=== PATIENT | female | born 1995 | race Caucasian/White ===

== ENCOUNTER 2022-12-18 07:42 | Inpatient (IN) ==
--- NOTE | 2022-12-18 08:12 | History & Physical Report ---
Date of Service December 18, 2022 Assessment & Plan (1) Elective induction of labor planned: Plan: 27 y/o female here for IOL. GBS neg, RI, Rh pos. Anticipate vaginal delivery. Epidural if/when desired. Pitocin when indicated. Admission and Anticipated Discharge Date Admission Date: December 18, 2022 History of Present Illness Primary Care Provider: NO PCP 27 y/o female here for IOL after kyle bulb insertion last evening. A pos, RI, GBS neg. +FM. No CTX. Small vaginal bleeding. No LOF. PMHx: no HTN or asthma, no personal or family history of clotting disorders Ob Hx Physical Education Teacher Hx No prev STDs Last pap 11/22/19: WNL Allergies Allergy/AdvReac Type Severity Reaction Status Date / Time amoxicillin Allergy Rash all Verified 12/17/22 19:26 over body animal dander Allergy Unknown Verified 12/17/22 19:26 house dust Allergy Unknown Verified 12/17/22 19:26 Penicillins Allergy hives Verified 12/17/22 19:26 Home Medications Medication Instructions Recorded Confirmed Type Saccharomyces boulardii [Daily 1 tab PO DAILY 04/29/22 12/17/22 History Probiotic (S. boulardii)] ascorbic acid (vitamin C) 1 tab PO DAILY 04/29/22 12/17/22 History calcium [calcium citrate] 1 tab PO DAILY 04/29/22 12/17/22 History cholecalciferol (vitamin D3) 1 tab PO DAILY 04/29/22 12/17/22 History prenat.vits,janeen,mei-mzmh-fffpk 1 tab PO DAILY 04/29/22 12/17/22 History zinc sulfate PO 04/29/22 12/17/22 History ondansetron HCl 4 mg tablet 4 mg PO Q8H PRN nausea and 10/07/22 12/17/22 Rx vomiting #30 tabs Patient History Medical History (Updated 12/18/22 @ 08:11 by Gardenia Fuentes MD) Depression with anxiety History of dysmenorrhea Surgical History S/P wisdom tooth extraction Family History (Updated 11/22/19 @ 08:48 by Gemma Robins) Family/Other Breast cancer paternal cousin x2 Aunt Breast cancer maternal aunt Denies family history of Ovarian cancer Colorectal cancer Uterine cancer Social History Smoking Status: Never smoker Second Hand Exposure: No; Do You Dip or Chew Tobacco: No; Tobacco Cessation Education Requested by Patient: No Hx Alcohol Use: No (occasional) Hx Substance Use: No Preferred Language: Portuguese Communication Ability: Effective Cost Recovery Technician Required: No Beliefs That Will Affect Care: None marital status: marital status details: Kike (28) [phone] Current Living Situation: Spouse Current Living Situation Comment: lives with spouse, 2 dogs, 3 cats, spouse to change litter. current occupational status: employed current occupation: Hair salon Other Information That Helps Us Care for You: No Feels Safe at Home: Yes Safety Concerns: Feels Safe At This Time Physical Exam Physical Exam: Gen: well appearing gravid female in NAD HEENT: AT NC Resp: CTAB no increased work of breathing CV: RRR no m/r/g, clinically well perfused, no calf tenderness : 3/70/-2 posterior, estimated weight 7-8 lbs Psych: appropriate mood and affect Neuro: alert and oriented FHT: CAT I, moderate variability, no decls, +acels Results & Data ([facility]) Vital Signs (Past 12 Hours) Vital Signs Pulse BP 12/18/22 07:51 90 115/79 Supervising Physician Co-Signing Physician Notes Resident Physician Supervision Note: I interviewed and examined the patient. Discussed with Dr. Fuentes and agree with findings and plan as documented in the note. Any exceptions or clarifications are listed here: Will begin pitocin induction per protocol. Documented By: Annmarie Stallings MD, FACOG Resident Activity Tracking Resident Involvement: Resident Care Provided Care Provided: OB Delivery
[2022-12-18] MEDS ORDERED: LIDOCAINE 1% LOCAL 20 ML VIAL INFIL PRN (08:16)
[2022-12-18] MEDS ORDERED: OXYTOCIN 30 UNITS/500 ML BAG IV PRN ×2 (08:16→09:11)
[2022-12-18 08:45] LABS: Hematocrit (blood only) 37.6 % (37.0-47.0); Hemoglobin 12.9 g/dl (12.0-16.0); Mean Corpuscular Hemoglobin 32.8 pg (25.0-34.0); Mean Corpuscular Hgb Conc 34.3 g/dL (32.0-36.0); Mean Corpuscular Volume 95.7 fL (80.0-100.0); Mean Platelet Volume 11.9 fL (9.4-12.4); Platelet Count 172 K/uL (130-400); RDW Coefficient of Variation 12.8 % (11.5-14.5); RDW Standard Deviation 45.1 fL (36.4-46.3); Red Blood Count 3.93 M/uL (4.20-5.40); White Blood Count 14.55 K/ul (4.8-10.8)
[2022-12-18] MEDS: LACTATED RINGER'S 1,000 ML IV PRN ×4 (09:05→21:15)
[2022-12-18] MEDS ORDERED: ePHEDrine sulfate 50 MG/ML AMP ONE (14:59)
[2022-12-18] MEDS ORDERED: LIDOCAINE 2%/EPINEPHRINE 1:200,000 20 ML SDV ONE (14:59)
[2022-12-18] MEDS ORDERED: fentaNYL citrate 100 MCG/2 ML VIAL ONE ×2 (14:59→21:06)
[2022-12-18] MEDS ORDERED: BUPIVACAINE 0.25% 30 ML VIAL ONE (14:59)
[2022-12-18] MEDS ORDERED: SODIUM CHLORIDE 0.9% INJ 10 ML VIAL ONE (14:59)
[2022-12-18] MEDS ORDERED: fentaNYL 2MCG/ML ROPIVACAINE 1.25MG/ML 100 ML BAG EPI ONE (15:00)
--- NOTE | 2022-12-18 15:41 | Anesthesiology Consultation ---
Date of Service December 18, 2022 Assessment & Plan Chart Review Chart Review: Acceptable Risk for Labor Epidural Consults Requested none History Height/Weight Height: 5 ft 6 in Weight: 76 kg Allergies Allergy/AdvReac Type Severity Reaction Status Date / Time amoxicillin Allergy Rash all Verified 12/17/22 19:26 over body animal dander Allergy Unknown Verified 12/17/22 19:26 house dust Allergy Unknown Verified 12/17/22 19:26 Penicillins Allergy hives Verified 12/17/22 19:26 Medications Home Medications Medication Instructions Recorded Confirmed Last Taken Saccharomyces boulardii [Daily 1 tab PO DAILY 04/29/22 12/17/22 Unknown Probiotic (S. boulardii)] ascorbic acid (vitamin C) 1 tab PO DAILY 04/29/22 12/17/22 Unknown calcium [calcium citrate] 1 tab PO DAILY 04/29/22 12/17/22 Unknown cholecalciferol (vitamin D3) 1 tab PO DAILY 04/29/22 12/17/22 Unknown prenat.vits,janeen,pjo-xjqc-eyicx 1 tab PO DAILY 04/29/22 12/17/22 12/17/22 zinc sulfate PO 04/29/22 12/17/22 Unknown ondansetron HCl 4 mg tablet 4 mg PO Q8H PRN nausea and 10/07/22 12/17/22 Unknown vomiting #30 tabs Active Medications Generic Name Dose Route Start Last Admin Trade Name Freq PRN Reason Stop Dose Admin Lactated Ringer's 1,000 mls @ 125 mls/hr 12/18/22 08:16 12/18/22 15:13 Lr IV 12/20/22 08:15 999 mls/hr .Q8H PRN Administration L&D Protocol Protocol Oxytocin 30 units in 500 mls @ 20 mls/hr 12/18/22 09:11 12/18/22 14:15 Pitocin IV 12/20/22 09:10 1.2 units/hr .Q24H PRN 20 mls/hr Labor Induction/Augmentation Titration Protocol 1.2 UNITS/HR Past Medical History Medical History (Updated 12/18/22 @ 08:11 by Gardenia Fuentes MD) Depression with anxiety History of dysmenorrhea Past Family History Family History (Updated 11/22/19 @ 08:48 by Gemma Robins) Family/Other Breast cancer paternal cousin x2 Aunt Breast cancer maternal aunt Denies family history of Ovarian cancer Colorectal cancer Uterine cancer Past Surgical History Surgical History S/P wisdom tooth extraction Social History Smoking Status: Never smoker Do You Dip or Chew Tobacco: No Hx Alcohol Use: No (occasional) Hx Substance Use: No Physical Exam Vital Signs Last Vital Signs Temp 36.8 C 12/18/22 08:04 Pulse 100 H 12/18/22 15:37 Resp 16 12/18/22 08:04 BP 122/71 12/18/22 15:37 Pulse Ox 99 12/18/22 15:37 Testing Laboratory Results 12/18/22 08:24
[2022-12-18] MEDS ORDERED: NALBUPHINE HCL INJ 10 MG/ML AMP IV PRN (15:42)
[2022-12-18] MEDS ORDERED: diphenhydrAMINE 50 MG/ML VIAL IV PRN (15:42)
[2022-12-18] MEDS ORDERED: NALOXONE HCL 0.4 MG/1 ML VIAL/CARP IV PRN (15:42)
[2022-12-18] MEDS ORDERED: NALOXONE HCL 1 MG in SODIUM CHLORIDE 0.9% 1000ML 1,000 ML IV PRN (15:42)
[2022-12-18] MEDS ORDERED: CALCIUM CARBONATE 500 MG CHEWABLE TAB PO PRN (16:50)
[2022-12-18] MEDS ORDERED: FAMOTIDINE 20 MG TAB PO PRN (18:38)
[2022-12-18] MEDS ORDERED: METOCLOPRAMIDE HCL INJ 5 MG/ML 2 ML VIAL IV STA (20:11)
[2022-12-18] MEDS ORDERED: FAMOTIDINE 20 MG in SYRINGE 3 ML IV ONE (20:13)
[2022-12-18] MEDS ORDERED: CITRIC ACID/SODIUM CITRATE 15 ML UDC PO PRN (20:17)
[2022-12-18] MEDS ORDERED: NURSING L&D Epidural Breakthrough Pain Update ONE (20:47)
[2022-12-18] MEDS: fentaNYL 2MCG/ML ROPIVACAINE 1.25MG/ML 100 ML BAG EPI PRN (20:57)
[2022-12-18] MEDS: ePHEDrine sulfate 50 MG/ML AMP IV PRN ×2 (21:13→21:32)
[2022-12-19] MEDS: fentaNYL 2MCG/ML ROPIVACAINE 1.25MG/ML 100 ML BAG EPI PRN (00:52)
[2022-12-19] MEDS ORDERED: HYDROCORTISONE ACETATE 25 MG SUPP PR PRN (01:39)
[2022-12-19] MEDS ORDERED: OXYTOCIN 30 UNITS/500 ML BAG IV PRN (01:39)
[2022-12-19] MEDS ORDERED: DIPHTHERIA/TETANUS/PERTUSSIS 0.5mL SYR/VIAL (Age 7+yrs) IM ONE (01:39)
[2022-12-19] MEDS ORDERED: BENZOCAINE 20% AER SPR 82.5 GM CAN EXT PRN (01:39)
[2022-12-19] MEDS ORDERED: ACETAMINOPHEN 325 MG TAB PO PRN (01:39)
[2022-12-19] MEDS ORDERED: oxyCODONE/ACETAMINOPHEN 5mg/325mg TAB PO PRN (01:39)
--- NOTE | 2022-12-19 01:46 | Delivery Summary ---
Vaginal Delivery Summary Date of Service December 19, 2022 Vaginal Delivery Summary and 1st Degree LAC Patient is a 27-year-old 1 P0 female EDC of 12/16/2022 who presented for induction of labor because of postterm she received effective cervical ripening with a balloon. Her contractions augmented with Pitocin. She received effective epidural analgesia and membranes were ruptured for clear fluid. She progressed to full dilation and pushed effectively over intact perineum for delivery of a viable male infant. After the head was delivered the rest the infant delivered easily without maternal effort. He was placed on her abdomen for further attention and drying. The infant was vigorous and moving all 4 limbs. After 1 minute the cord was clamped and cut. Cord blood was obtained. The placenta was then expressed intact with a three-vessel cord. A first-degree vaginal laceration was repaired with 3-0 chromic in the usual fashion. A periclitoral abrasion was not bleeding and therefore not repaired. bleeding was controlled with dilute Pitocin and fundal massage. Estimated blood loss was 300 cc. Mother and infant were doing well after delivery. [facility] Vaginal Delivery Charge Delivery Type Details: and 1st Degree LAC
[2022-12-19] MEDS: IBUPROFEN 600 MG TAB PO PRN ×4 (03:36→21:01)
[2022-12-19] MEDS: PRENATAL VITAMIN 1 TAB PO SCH (08:42)
[2022-12-19] MEDS: DOCUSATE SODIUM 100 MG CAP PO SCH ×2 (08:42→21:01)
--- NOTE | 2022-12-19 09:58 | Anesthesia Procedure Note ---
Date of Service December 19, 2022 Anesthesia Post Epidural Note Vital Signs Vital Signs: Temp Pulse Resp BP Pulse Ox O2 Del Method 97.9 F 90 16 121/80 98 Room Air 12/19/22 08:58 12/19/22 08:58 12/19/22 08:58 12/19/22 08:58 12/19/22 08:58 12/19/22 08:58 Pain Intensity Lower Abdomen: Pain Intensity: 2 Notes Mental Status: alert / awake / arousable and participated in evaluation Nausea / Vomiting: adequately controlled Pain: adequately controlled Airway Patency, RR, SpO2: stable & adequate BP & HR: stable & adequate Hydration State: stable & adequate Neuraxial Anesthesia: was administered and sensory block is resolving Anesthetic Complications: no major complications apparent and Pt Satisfied with anesthetic care Epidural: Removed without complications and With tip intact
[2022-12-19] MEDS ORDERED: ONDANSETRON INJ 2 MG/ML 2 ML VIAL IV PRN (18:58)
--- NOTE | 2022-12-20 00:04 | Obstetrical Progress Note ---
Date of Service December 20, 2022 Assessment & Plan (1) Elective induction of labor planned: 27 y/o female presented for IOL now PPD1. GBS neg, RI, Rh pos. Satisfactory post progress. Tolerating PO. Encourage ambulation. (2) care following vaginal delivery: Subjective Ambulation: ambulating normally Voiding: no voiding problems Passing Gas:: Yes Diet Tolerance:: regular diet Lochia:: Small Feeding Type:: breast feeding Physical Exam Gen: well appearing gravid female in NAD HEENT: AT NC Resp: no increased work of breathing CV: clinically well perfused, no calf tenderness : firm, non-tender uterine fundus at the level of the umbilicus Psych: appropriate mood and affect Neuro: alert and oriented Results & Data ([facility]) Vital Signs (Past 12 Hours) Vital Signs Temp Pulse Pulse Resp BP BP Pulse Ox 12/19/22 23:38 36.9 C 95 H 16 116/70 97 12/19/22 19:34 37.0 C 95 H 16 115/74 97 12/19/22 15:00 36.8 C 78 18 113/74 100 12/19/22 13:02 36.7 C 91 H 19 121/80 98 O2 Del Method 12/19/22 23:38 Room Air 12/19/22 19:34 Room Air 12/19/22 15:00 Room Air 12/19/22 13:02 Room Air Resident Activity Tracking Resident Involvement: Resident Care Provided Care Provided: OB Delivery
[2022-12-20 07:14] LABS: Hematocrit (blood only) 30.1 % (37.0-47.0); Hemoglobin 10.3 g/dl (12.0-16.0); Mean Corpuscular Hgb Conc 34.2 g/dL (32.0-36.0); Mean Corpuscular Volume 96.5 fL (80.0-100.0); Mean Platelet Volume 11.4 fL (9.4-12.4); Platelet Count 160 K/uL (130-400); RDW Coefficient of Variation 13.5 % (11.5-14.5); RDW Standard Deviation 47.9 fL (36.4-46.3); Red Blood Count 3.12 M/uL (4.20-5.40); White Blood Count 21.95 K/ul (4.8-10.8)
[2022-12-20] MEDS: PRENATAL VITAMIN 1 TAB PO SCH (08:36)
[2022-12-20] MEDS: DOCUSATE SODIUM 100 MG CAP PO SCH (08:36)
[2022-12-20] MEDS: IBUPROFEN 600 MG TAB PO PRN ×3 (08:37→18:16)
[2022-12-20] MEDS ORDERED: bisacodyL 5 MG TABEC PO SCH (20:00)
[2022-12-21] MEDS ORDERED: bisacodyL 10 MG SUPP PR PRN (01:39)
--- NOTE | 2022-12-23 09:25 | Coding Query ---
CODING QUERY To promote full compliance with coding requirements relating to patient care, provider participation is requested in all cases of bowling ball finisher uncertainty. Please assist us with the question(s) below: Coding Question(s): The Delivery Summary documents, "EDC of 12/16/2022 who presented for induction of labor because of postterm ". Please specify below, the weeks of gestation: ( x ) Weeks of gestation specified - Please Specify: 40 11/26 weeks ( ) Unknown/unspecified weeks of gestation Physician's Response(s): Thank you Adela Retana Principal Diagnosis: "that condition established after study, to be chiefly responsible for occasioning the admission of the patient to the hospital for care." Co-Existing Principal Diagnosis: "when two or more diagnoses equally meet the criteria for principal diagnosis as determined by the circumstances of admission, diagnostic work up, and/or therapy provided, and the Alphabetic Index, Tabular List, or another coding guideline does not provide sequencing direction, any one of the diagnoses may be sequenced first." "When the physician has documented what appears to be a current diagnosis in the body of the record, but has not included the diagnosis in the final diagnostic statement, the physician should be asked whether the diagnosis should be added." ([facility] 2 QTR90. p3-4) APOLONIA
--- NOTE | 2022-12-23 09:29 | Coding Query ---
CODING QUERY To promote full compliance with coding requirements relating to patient care, provider participation is requested in all cases of pet training instructor uncertainty. Please assist us with the question(s) below: Coding Question(s): The Delivery Summary documents, " EDC of 12/16/2022 who presented for induction of labor because of postterm ", however, the H&P and Progress Note on 12/20 document, "Elective induction of labor planned". Please specify below, the reason for IOL: ( x ) Induction of Labor because of Posterm ( ) Elective Induction of Labor ( ) Other: Please Specify Physician's Response(s): Thank you Adela Retana Principal Diagnosis: "that condition established after study, to be chiefly responsible for occasioning the admission of the patient to the hospital for care." Co-Existing Principal Diagnosis: "when two or more diagnoses equally meet the criteria for principal diagnosis as determined by the circumstances of admission, diagnostic work up, and/or therapy provided, and the Alphabetic Index, Tabular List, or another coding guideline does not provide sequencing direction, any one of the diagnoses may be sequenced first." "When the physician has documented what appears to be a current diagnosis in the body of the record, but has not included the diagnosis in the final diagnostic statement, the physician should be asked whether the diagnosis should be added." ([facility] 2 QTR90. p3-4) APOLONIA
--- NOTE | 2022-12-23 09:32 | Coding Query ---
CODING QUERY To promote full compliance with coding requirements relating to patient care, provider participation is requested in all cases of safety counselor uncertainty. Please assist us with the question(s) below: Coding Question(s): The H&P documents, "Will begin pitocin induction per protocol", however, the Delivery Summary documents, "Her contractions augmented with Pitocin". Please specify below, regarding the Pitocin, to determine if it was for induction or for augmentation of labor. ( x ) Pitocin was for induction of labor ( ) Pitocin was for augmentation of labor ( ) Other: Please Specify Physician's Response(s): Thank you Adela Retana Principal Diagnosis: "that condition established after study, to be chiefly responsible for occasioning the admission of the patient to the hospital for care." Co-Existing Principal Diagnosis: "when two or more diagnoses equally meet the criteria for principal diagnosis as determined by the circumstances of admission, diagnostic work up, and/or therapy provided, and the Alphabetic Index, Tabular List, or another coding guideline does not provide sequencing direction, any one of the diagnoses may be sequenced first." "When the physician has documented what appears to be a current diagnosis in the body of the record, but has not included the diagnosis in the final diagnostic statement, the physician should be asked whether the diagnosis should be added." ([facility] 2 QTR90. p3-4) APOLONIA
--- NOTE | 2022-12-23 13:34 | Coding Query ---
CODING QUERY To promote full compliance with coding requirements relating to patient care, provider participation is requested in all cases of photocopying machine operator uncertainty. Please assist us with the question(s) below: Coding Question(s): Please specify below, in your clinical opinion, the diagnosis most responsible for occasioning the inpatient admission: ( ) Acute on Chronic Diastolic heart failure ( ) Atrial Fibrillation ( ) Other: Please Specify Physician's Response(s): Thank you Adela Retana Principal Diagnosis: "that condition established after study, to be chiefly responsible for occasioning the admission of the patient to the hospital for care." Co-Existing Principal Diagnosis: "when two or more diagnoses equally meet the criteria for principal diagnosis as determined by the circumstances of admission, diagnostic work up, and/or therapy provided, and the Alphabetic Index, Tabular List, or another coding guideline does not provide sequencing direction, any one of the diagnoses may be sequenced first." "When the physician has documented what appears to be a current diagnosis in the body of the record, but has not included the diagnosis in the final diagnostic statement, the physician should be asked whether the diagnosis should be added." ([facility] 2 QTR90. p3-4) APOLONIA
== END 2022-12-20 18:35 | disposition home or self-care (01) | DRG 807 ==
LOC: 4S1 07:42 → 4E2 12-19 04:41

== ENCOUNTER 2025-02-07 00:51 | Inpatient (IN) ==
[2025-02-07] MEDS ORDERED: CALCIUM CARBONATE 500 MG CHEWABLE TAB PO PRN (06:12)
[2025-02-07] MEDS ORDERED: LIDOCAINE 1% LOCAL 20 ML VIAL INFIL PRN (06:12)
[2025-02-07] MEDS ORDERED: OXYTOCIN 30 UNITS/NSS 30 UNITS/500 ML BAG IV PRN ×2 (06:12)
--- NOTE | 2025-02-07 06:19 | History & Physical Report ---
Date of Service February 07, 2025 Assessment & Plan (1) Normal labor: Plan: admit, iv, labs. will plan arom when appropriate and may need pit aug to generate regular labor pattern. desires epidural and anesth consulted. (2) Group B streptococcal infection during : Plan: plan kefzol given allergy to pcn. History of Present Illness Chief Complaint: regular ctx Primary Care Provider: HEATHER Marquez 29yo at 40wks ega presented to LD with cc of regular ctx. At first cx was 1cm but over obs period now 5cm/75/-2 per nurse. No rom, no vb. +FM. PNC c/b 1. GBS pos, allergy to PCN hives, will plan kefzol PNL rhpos, ri, gbs pos OBH: svdx 1 GYNH: nl paps no stds Allergies Allergy/AdvReac Type Severity Reaction Status Date / Time amoxicillin Allergy Rash all Verified 01/31/25 10:24 over body animal dander Allergy Unknown Verified 01/31/25 10:24 house dust Allergy Unknown Verified 01/31/25 10:24 Penicillins Allergy hives Verified 01/31/25 10:24 Home Medications Medication Instructions Recorded Confirmed Type cetirizine 10 mg tablet (Zyrtec) 10 mg PO DAILY PRN Allergy Symptoms 11/27/23 02/07/25 History magnesium 200 mg tablet 200 mg PO DAILY 06/22/24 01/31/25 History prenat.vits,janeen,fgk-peuo-uvdmf 1 tab PO DAILY 06/22/24 02/07/25 History psyllium [Metamucil] PO DAILY PRN PRN 06/22/24 01/31/25 History ondansetron HCl 4 mg tablet 4 mg PO Q6H PRN nausea and 10/18/24 01/31/25 Rx vomiting #20 tabs Patient History Medical History (Updated 02/07/25 @ 06:18 by Malinda Wheat MD, FACOG) Acid reflux Anxiety Depression with anxiety History of dysmenorrhea Surgical History S/P wisdom tooth extraction Family History (Updated 06/22/24 @ 09:57 by Stacie Beckwith) Family/Other Breast cancer paternal cousin x2 Aunt Breast cancer maternal aunt Grandmother Myocardial infarction Grandfather (Maternal) Stroke Denies family history of Ovarian cancer Prostate cancer Colorectal cancer Uterine cancer Social History (Updated 06/22/24 @ 09:58 by Stacie Beckwith) Smoking Status: Never smoker Second Hand Exposure: No; Do You Dip or Chew Tobacco: No; Hx Alcohol Use: No (occasional) Hx Substance Use: No Preferred Language: Urdu Communication Ability: Effective Clothing Sorter Required: No Beliefs That Will Affect Care: None marital status: marital status details: Kike (30) [phone] Current Living Situation: Family Current Living Situation Comment: lives with spouse, child, 2 dogs, 3 cats, spouse to change litter current occupational status: employed current occupation: Hair salon Other Information That Helps Us Care for You: No Feels Safe at Home: Yes Safety Concerns: Feels Safe At This Time Diet: regular caffeine: Yes Physical Activity Frequency: Does not Exercise Assistive Devices: None Review of Systems as per Subjective / HPI Physical Exam Constitutional: WD/WN, vitals as above Respiratory: normal respiratory effort, lungs clear to auscultation Cardiovascular: Rate/Rhythm: regular rate and regular rhythm Gastrointestinal (Abdomen): soft gravid nt efw 7-8# Musculoskeletal: no edema nontender calves Neurologic: grossly normal Psychiatric: A+Ox3, euthymic affect Genitourinary: Manual OB Exam: + cervical dilation (per nurse) 5 cm OB Exam Monitor Tracing: + external FHT monitor used, + external uterine monitor used (q2-6), + category I and + normal FHT variability Results & Data Vital Signs (Past 12 Hours) Vital Signs Temp Pulse Resp BP 02/07/25 01:08 97.9 F 16 02/07/25 01:03 100 H 123/74 Coding Level of Care Code None Diagnoses Normal labor O80; Z37.9 Group B streptococcal infection during O98.819; B95.1
[2025-02-07] MEDS: LACTATED RINGER'S 1,000 ML IV PRN (06:38)
[2025-02-07 06:54] LABS: Hematocrit (blood only) 36.8 % (37.0-47.0); Hemoglobin 12.9 g/dl (12.0-16.0); Mean Corpuscular Hgb Conc 35.1 g/dL (32.0-36.0); Mean Corpuscular Volume 91.3 fL (80.0-100.0); Mean Platelet Volume 11.8 fL (9.4-12.4); Platelet Count 155 K/uL (130-400); RDW Coefficient of Variation 13.3 % (11.5-14.5); Red Blood Count 4.03 M/uL (4.20-5.40); White Blood Count 14.33 K/ul (4.8-10.8)
[2025-02-07] MEDS ORDERED: SODIUM CHLORIDE 0.9% PF INJ 10 ML VIAL EPI STA (06:58)
[2025-02-07] MEDS ORDERED: fentaNYL citrate PF 100 MCG/2 ML VIAL EPI PRN (06:58)
[2025-02-07] MEDS ORDERED: ePHEDrine sulfate 50 MG/ML AMP IV PRN (06:58)
[2025-02-07] MEDS ORDERED: diphenhydrAMINE 50 MG/ML VIAL IV PRN (06:58)
[2025-02-07] MEDS ORDERED: BUPIVACAINE 0.25% PF 30 ML VIAL EPI PRN (06:58)
[2025-02-07] MEDS ORDERED: fentaNYL citrate PF 100 MCG/2 ML VIAL EPI STA (06:58)
[2025-02-07] MEDS ORDERED: NALBUPHINE HCL INJ 10 MG/ML AMP IV PRN (06:58)
[2025-02-07] MEDS ORDERED: LIDOCAINE 2%/EPINEPHRINE 1:200,000 20 ML PF EPI STA (06:58)
[2025-02-07] MEDS ORDERED: NALOXONE HCL 0.4 MG/1 ML VIAL/CARP IV PRN (06:58)
[2025-02-07] MEDS ORDERED: ROPIVACAINE 0.5% PF 5 MG/ML 20 ML VIAL EPI PRN (06:58)
[2025-02-07] MEDS ORDERED: BUPIVACAINE 0.25% PF 30 ML VIAL EPI STA (06:58)
[2025-02-07] MEDS ORDERED: SODIUM CHLORIDE 0.9% PF INJ 10 ML VIAL EPI PRN (06:58)
[2025-02-07] MEDS ORDERED: fentANYL 2 MCG/ML BUPIVacaine 0.125%-NSS 100ML BAG EPI PRN (06:58)
[2025-02-07] MEDS ORDERED: NALOXONE HCL 1 MG in SODIUM CHLORIDE 0.9% 1,000 ML IV PRN (06:58)
[2025-02-07] MEDS ORDERED: LIDOCAINE 2% MPF LOCAL 5 ML VIAL EPI PRN (06:58)
[2025-02-07] MEDS: ceFAZolin 2000MG 2,000 MG/15 ML SYR IV ONE (06:59)
--- NOTE | 2025-02-07 07:02 | Anesthesiology Consultation ---
Date of Service February 07, 2025 Assessment & Plan Chart Review Chart Review: Patient NOT seen in Pre Admission Testing and Acceptable Risk for Labor Epidural Consults Requested none ASA ASA2 Proposed Anesthesia Anesthesia Type: Labor Epidural Risk / Benefits Reviewed With: PT / POA / Parent / Guardian, Accepts Plan and Informed Consent Obtained History Height/Weight Height: 5 ft 6 in Weight: 80.286 kg Allergies Allergy/AdvReac Type Severity Reaction Status Date / Time amoxicillin Allergy Rash all Verified 01/31/25 10:24 over body animal dander Allergy Unknown Verified 01/31/25 10:24 house dust Allergy Unknown Verified 01/31/25 10:24 Penicillins Allergy hives Verified 01/31/25 10:24 Medications Home Medications Medication Instructions Recorded Confirmed Last Taken cetirizine 10 mg tablet (Zyrtec) 10 mg PO DAILY PRN Allergy Symptoms 11/27/23 02/07/25 1 Day Ago ~02/06/25 magnesium 200 mg tablet 200 mg PO DAILY 06/22/24 01/31/25 Unknown prenat.vits,janeen,[id number]-olqet 1 tab PO DAILY 06/22/24 02/07/25 1 Day Ago ~02/06/25 psyllium [Metamucil] PO DAILY PRN PRN 06/22/24 01/31/25 1 Day Ago ~02/06/25 ondansetron HCl 4 mg tablet 4 mg PO Q6H PRN nausea and 10/18/24 01/31/25 Unknown vomiting #20 tabs Active Medications Generic Name Dose Route Start Last Admin Trade Name Freq PRN Reason Stop Dose Admin Lactated Ringer's 1,000 mls @ 125 mls/hr 02/07/25 06:12 02/07/25 07:50 Lr IV 02/08/25 06:11 125 mls/hr .Q8H PRN Infusion L&D Protocol Protocol NPO Date Last Intake of Fluids: 02/07/25 Time Last Intake of Fluids: 07:00 Date Last Intake of Solids: 02/06/25 Time Last Intake of Solids: 18:00 Past Medical History Medical History Acid reflux Anxiety Depression with anxiety History of dysmenorrhea Exercise / Class Metabolic Activity 1 > 8 Run/Swim/Ski/Tennis Past Family History Family History Family/Other Breast cancer paternal cousin x2 Aunt Breast cancer maternal aunt Grandmother Myocardial infarction Grandfather (Maternal) Stroke Denies family history of Ovarian cancer Prostate cancer Colorectal cancer Uterine cancer Past Surgical History Surgical History S/P wisdom tooth extraction Past Anesthesia History No Hx of Anesthesia Complications and No Family Hx of Anesthesia Complications History of PONV No Hx of PONV and No Hx of Motion Sickness Social History Smoking Status: Never smoker Do You Dip or Chew Tobacco: No Hx Alcohol Use: No (occasional) Hx Substance Use: No Review of Systems ROS Unobtainable: All systems reviewed & are unremarkable except as noted in HPI & below Physical Exam Vital Signs Last Vital Signs Temp 36.6 C 02/07/25 01:08 Pulse 90 02/07/25 06:37 Resp 16 02/07/25 01:08 BP 121/71 02/07/25 06:37 ENMT Mouth: no TMJ abnormality Thyromental Distance: > or= 3.5 Finger Breadths Mallampati Class: II Neck normal visual inspection and trachea midline; neck extension not limited Respiratory normal respiratory effort Auscultation: lungs clear to auscultation bilaterally Cardiovascular Rate/Rhythm: regular rate and regular rhythm Heart Sounds: no murmur Musculoskeletal Spine: normal cervical ROM Extremities: full ROM of extremities Neurologic moves all extremities Psychiatric Orientation: alert and oriented x 3 Testing Laboratory Results 02/07/25 06:33
[2025-02-07] MEDS: fentaNYL citrate PF 100 MCG/2 ML VIAL ONE (07:34)
[2025-02-07] MEDS: BUPIVACAINE 0.25% PF 30 ML VIAL ONE (07:35)
[2025-02-07] MEDS: fentANYL 2 MCG/ML BUPIVacaine 0.125%-NSS 100ML BAG ONE (07:36)
[2025-02-07] MEDS: LIDOCAINE 2%/EPINEPHRINE 1:200,000 20 ML PF ONE (07:36)
[2025-02-07] MEDS: SODIUM CHLORIDE 0.9% PF INJ 10 ML VIAL ONE (07:51)
[2025-02-07] MEDS: ePHEDrine sulfate 50 MG/ML AMP ONE (07:51)
[2025-02-07] MEDS: OXYTOCIN 30 UNITS/NSS 30 UNITS/500 ML BAG IV PRN (10:40)
[2025-02-07] MEDS ORDERED: bisacodyL 10 MG SUPP PR PRN (10:51)
[2025-02-07] MEDS ORDERED: HYDROCORTISONE ACETATE 25 MG SUPP PR PRN (10:51)
--- NOTE | 2025-02-07 10:51 | Delivery Summary ---
Vaginal Delivery Summary Date of Service February 07, 2025 Vaginal Delivery Summary and 1st Degree LAC Patient admitted by previous provider in active labor requested epidural I performed artificial rupture of membranes for clear fluid patient rapidly progressed to fully dilated and pushed over several contractions delivering a baby in occiput anterior position mouth and nares suction gentle traction on the baby no excessive force live vigorous male Cord clamped and cut cord blood obtained placenta removed after traction IV Pitocin started uterine tone excellent a small periclitoral tear was noted but was bleeding so this was closed with 3-0 Vicryl care was taken to catheterize the patient while doing this to avoid any effect on the urethra a small first-degree tear repaired with a [id number]-gn-zdeel suture as well sponge and instrument counts correct quantitative blood loss 103 mL [facility] Vaginal Delivery Charge Delivery Type Details: and 1st Degree LAC
[2025-02-07] MEDS: IBUPROFEN 600 MG TAB PO PRN (10:56)
[2025-02-07] MEDS: DIPHTHER/TETAN/PERTUS Vaccine (Tdap, Adol/Adult) 0.5mL IM ONE (11:19)
--- NOTE | 2025-02-07 11:30 | Anesthesia Procedure Note ---
Date of Service February 07, 2025 Anesthesia Post Epidural Note Vital Signs Vital Signs: Temp Pulse Resp BP Pulse Ox 36.6 C 107 H 18 123/56 L 97 02/07/25 01:08 02/07/25 11:25 02/07/25 11:10 02/07/25 11:25 02/07/25 10:40 Pain Intensity Lower Medial Abdomen: Pain Intensity: 0 Notes Mental Status: alert / awake / arousable and participated in evaluation Nausea / Vomiting: adequately controlled Pain: adequately controlled Airway Patency, RR, SpO2: stable & adequate BP & HR: stable & adequate Hydration State: stable & adequate Neuraxial Anesthesia: was administered and sensory block is resolving Anesthetic Complications: no major complications apparent Epidural: Removed without complications and With tip intact
[2025-02-07] MEDS ORDERED: ceFAZolin 1000MG 1,000 MG/7.5 ML SYR IV PRN (13:12)
[2025-02-07] MEDS: BENZOCAINE 20% SPRY 85 APPLN/85 GM CAN EXT PRN (15:22)
[2025-02-07] MEDS: ACETAMINOPHEN 325 MG TAB PO PRN (18:12)
[2025-02-07] MEDS: DOCUSATE SODIUM 100 MG CAP PO SCH (20:11)
[2025-02-08 05:41] VITALS: RESP 16
[2025-02-08 06:23] LABS: Hematocrit (blood only) 30.3 % (37.0-47.0); Hemoglobin 10.3 g/dl (12.0-16.0); Mean Corpuscular Hemoglobin 31.7 pg (25.0-34.0); Mean Corpuscular Volume 93.2 fL (80.0-100.0); Mean Platelet Volume 11.6 fL (9.4-12.4); Platelet Count 139 K/uL (130-400); RDW Coefficient of Variation 13.8 % (11.5-14.5); RDW Standard Deviation 46.1 fL (36.4-46.3); Red Blood Count 3.25 M/uL (4.20-5.40); White Blood Count 11.49 K/ul (4.8-10.8)
--- NOTE | 2025-02-08 07:44 | Obstetrical Progress Note ---
Date of Service <Luke Alcaraz MD - Last Filed: 02/08/25 07:52> February 08, 2025 Assessment & Plan <Luke Alcaraz MD - Last Filed: 02/08/25 07:52> (1) care and examination: (2) Group B streptococcal infection during : Plan PPD1 s/p at 40+ wga: Stable. Rh+, gbs pos s/p pen G, ri, vitals & H/H noted Continue routine care, OOB and ambulation, diet as tolerated Plan for DC today <Ivelisse Carrillo MD, FACOG - Last Filed: 02/08/25 08:04> (1) care and examination: (2) Group B streptococcal infection during : Subjective <Luke Alcaraz MD - Last Filed: 02/08/25 07:52> Patient is a 29yo who is PPD#1 following at 40+ weeks. Abd pain/cramping - 1-2/10, well managed on analgesics Voiding w/o issue Tolerating meals Ambulating normally +passing gas Lochia - appropriate, diminishing] Planning to breastfeed. Constitutional: no fever, no chills or no sweats Respiratory: no dyspnea Cardiovascular: no chest pain, no palpitations or no calf pain Breast: no breast pain Gastrointestinal: no nausea or no vomiting Genitourinary (female): no dysuria Neurologic: no headache(s) no changes in vision, no headaches Physical Exam <Luke Alcaraz MD - Last Filed: 02/08/25 07:52> General: Alert, oriented. No acute distress. Cardiac: Regular rate and rhythm, no murmurs, rubs, or gallops. Respiratory: Clear to auscultation bilaterally. No increased work of breathing. Symmetrical chest rise. No respiratory distress. Abdomen: Soft, nontender, nondistended. Bowel sounds present. Uterus: Uterine fundus firm, nontender, palpable 1 cm below the umbilicus. Lower extremities: No lower extremity edema or swelling. No deep calf pain. Results & Data <Luke Alcaraz MD - Last Filed: 02/08/25 07:52> Vital Signs (Past 12 Hours) Vital Signs Temp Pulse Resp BP Pulse Ox O2 Del Method 02/08/25 05:00 36.8 C 88 16 96/58 L 96 Room Air 02/07/25 23:00 36.6 C 82 18 100/65 98 Room Air 02/07/25 19:45 36.7 C 88 18 108/72 99 Room Air Laboratory Results 02/08/25 05:58 Supervising Physician <Ivelisse Carrillo MD, FACOG - Last Filed: 02/08/25 08:04> Co-Signing Physician Notes Resident Physician Supervision Note: I interviewed and examined the patient. Discussed with [Name of resident] and agree with findings and plan as documented in the note. Any exceptions or clarifications are listed here: [None] Documented By: Ivelisse Carrillo MD, FACOG Resident Activity Tracking <Luke Alcaraz MD - Last Filed: 02/08/25 07:52> Resident Involvement: Resident Care Provided Care Provided: Adult Hospital Medicine and OB Delivery
[2025-02-08] MEDS: PRENATAL VITAMIN 1 TAB PO SCH (11:07)
[2025-02-08] MEDS: bisacodyL 5 MG TABEC PO SCH (20:39)
[2025-02-09 05:59] LABS: Hematocrit (blood only) 32.4 % (37.0-47.0); Hemoglobin 11.1 g/dl (12.0-16.0)
--- NOTE | 2025-02-09 06:05 | Obstetrical Progress Note ---
Date of Service <Luke Alcaraz MD - Last Filed: 02/09/25 06:48> February 09, 2025 Assessment & Plan <Luke Alcaraz MD - Last Filed: 02/09/25 06:48> (1) care and examination: (2) Group B streptococcal infection during : Plan PPD2 s/p at 40+ wga: Stable. Rh+, gbs pos s/p pen G, ri, vitals & H/H noted Continue routine care, OOB and ambulation, diet as tolerated Plan for DC today <Jesenia Angel MD - Last Filed: 02/09/25 07:00> (1) care and examination: (2) Group B streptococcal infection during : Subjective <Luke Alcaraz MD - Last Filed: 02/09/25 06:48> Patient is a 29yo who is PPD#2 following at 40+ weeks. Stayed extra day d/t issues w/ baby's breathing Abd pain/cramping minimal, well managed on analgesics Voiding w/o issue Tolerating meals Ambulating normally +passing gas Lochia minimal, diminishing Planning to breastfeed. Constitutional: no fever, no chills or no sweats Respiratory: no dyspnea Cardiovascular: no chest pain, no palpitations or no calf pain Breast: no breast pain Gastrointestinal: no nausea or no vomiting Genitourinary (female): no dysuria Neurologic: no headache(s) no changes in vision, no headaches Physical Exam <Luke Alcaraz MD - Last Filed: 02/09/25 06:48> General: Alert, oriented. No acute distress. Cardiac: Regular rate and rhythm, no murmurs, rubs, or gallops. Respiratory: Clear to auscultation bilaterally. No increased work of breathing. Symmetrical chest rise. No respiratory distress. Abdomen: Soft, nontender, nondistended. Bowel sounds present. Uterus: Uterine fundus firm, nontender, palpable 1 cm below the umbilicus. Lower extremities: No lower extremity edema or swelling. No deep calf pain. Results & Data <Luke Alcaraz MD - Last Filed: 02/09/25 06:48> Vital Signs (Past 12 Hours) Vital Signs Temp Pulse Resp BP Pulse Ox O2 Del Method 02/08/25 23:30 36.8 C 69 16 127/69 99 Room Air 02/08/25 20:30 36.6 C 79 16 110/75 98 Room Air Laboratory Results 02/09/25 05:37 Supervising Physician <Jesenia Angel MD - Last Filed: 02/09/25 07:00> Co-Signing Physician Notes Resident Physician Supervision Note: I interviewed and examined the patient. Discussed with Dr. Alcaraz and agree with findings and plan as documented in the note. Any exceptions or clarifications are listed here: PP2 s/p , doing well. Stayed due to baby but baby is doing better. Stable for dc today Documented By: Jesenia Angel MD Resident Activity Tracking <Luke lAcaraz MD - Last Filed: 02/09/25 06:48> Resident Involvement: Resident Care Provided Care Provided: Adult Hospital Medicine and OB Delivery
[2025-02-09 10:05] VITALS: BP 119/76; PULSE 91; TEMP 98.8; O2SAT 98
== END 2025-02-09 13:40 | disposition home or self-care (01) | DRG 807 ==
LOC: OPB 00:51 → 4S1 00:57 → 4E2 13:00